=== PATIENT | female | born 1970 | race Caucasian/White ===

== ENCOUNTER 2016-06-24 09:45 | Emergency (ER) | payer BC ==
[2016-06-24 10:31] VITALS: BP 125/89
--- NOTE | 2016-06-24 13:13 | UC ---
Respiratory Complaint HPI - HPI Summary HPI Summary: 1 WEEK OF CONGESTION, COUGH AND FATIGUE. HAD ST INITIALLY BUT THAT HAS IMPROVED. YESTERDAY HAD ONSET OF RIGHT LOWER ABDOMINAL PAIN. NO NAUSEA OR FEVER. NOT WORSE WITH FOOD. NO URINARY SYMPTOMS. - History of Current Complaint Chief Complaint: UCGeneralIllness Stated Complaint: URI Time Seen by Provider: 06/24/16 12:59 Hx Obtained From: Patient Hx Last Menstrual Period: 06/17/16 Onset/Duration: Gradual Onset, Lasting Days, Still Present Timing: Constant Severity Initially: Moderate Severity Currently: Moderate Pain Intensity: 3 Pain Scale Used: 0-10 Numeric Character: Cough: Nonproductive Aggravating Factors: Nothing Alleviating Factors: Nothing Associated Signs And Symptoms: Positive: URI, Nasal Congestion. Negative: Dyspnea, Fever, Chills, Wheezing - Allergies/Home Medications Allergies/Adverse Reactions: Allergies Allergy/AdvReac Type Severity Reaction Status Date / Time No Known Allergies Allergy Verified 11/16/15 19:47 Home Medications: Home Medications Magnesium 400 mg PO BID 06/24/16 [History Confirmed 06/24/16] Mycophenolate (NF) [Myfortic (NF)] 360 mg PO DAILY 06/24/16 [History Confirmed 06/24/16] Virt Phos 500 mg 06/24/16 [History] PMH/Surg Hx/FS Hx/Imm Hx Endocrine History Of: Denies: Diabetes, Thyroid Disease Cardiovascular History Of: Reports: Hypertension Denies: Cardiac Disorders, Pacemaker/ICD Respiratory History Of: Denies: COPD, Asthma GI/ History Of: Reports: Renal Disease - polycystic kidney disease S/P RENAL TRANSPLANT 08/2015 Denies: Gastroesophageal Reflux Neurological History Of: Denies: CVA, Dementia, Seizures Cancer History Of: Denies: Breast Cancer Other History Of: Negative For: Anticoagulant Therapy - Surgical History Surgical History: Yes Surgery Procedure, Year, and Place: TUBAL LIGATION, RIGHT KIDNEY TRANSPLANT 2015, REMOVAL OF BILAT OLD KIDNEYS 08/2015 - Family History Known Family History: Positive: Other - POLYCYSTIC KIDNEY DISEASE (DAD), CKD, GALLBLADDER PROBLEMS - Social History Alcohol Use: None Substance Use Type: None Smoking Status (MU): Never Smoked Tobacco - Immunization History Most Recent Influenza Vaccination: long time ago Most Recent Tetanus Shot: a while ago Most Recent Pneumonia Vaccination: no Review of Systems Constitutional: Negative ENT: Sore Throat, Nasal Discharge Respiratory: Cough Cardiovascular: Negative Gastrointestinal: Abdominal Pain Genitourinary: Negative All Other Systems Reviewed And Are Negative: Yes Physical Exam Triage Information Reviewed: Yes Appearance: Well-Appearing, No Pain Distress, Well-Nourished Vital Signs: Initial Vital Signs Temp 99.3 F 06/24/16 10:23 Pulse 74 06/24/16 10:23 Resp 18 06/24/16 10:23 BP 125/89 06/24/16 10:23 Pulse Ox 100 06/24/16 10:23 Vital Signs Reviewed: Yes Eyes: Positive: Conjunctiva Clear ENT: Positive: Hearing grossly normal, Pharynx normal, TMs normal Neck: Positive: Supple, Nontender, No Lymphadenopathy Respiratory Exam: Normal Cardiovascular Exam: Normal Abdomen Description: Positive: Soft, Other: - RLQ TTP. NO REBOUND, RIGIDITY OR GUARDING. Negative: CVA Tenderness (R), CVA Tenderness (L), Distended, Guarding Bowel Sounds: Positive: Present Musculoskeletal: Positive: No Edema Neurological: Positive: Alert Psychological: Positive: Age Appropriate Behavior Skin: Negative: rashes UC Diagnostic Evaluation - Laboratory O2 Sat by Pulse Oximetry: 100 Respiratory Course/Dx - Differential Dx/Diagnosis Provider Diagnoses: 1. ACUTE BRONCHITIS. 2. RLQ ABDOMINAL PAIN, NOS Discharge - Discharge Plan Condition: Stable Disposition: HOME Prescriptions: Azithromycin [Azithromycin 500 MG TAB] 500 mg PO DAILY #5 tab Patient Education Materials: Acute Bronchitis (ED), Abdominal Pain (ED) Referrals: Tori Elder MD [Primary Care Provider] - If Needed Additional Instructions: ABDOMINAL PAIN: There are many causes of abdominal pain. Pain can mean a serious problem requiring surgery (such as appendicitis), or an innocent problem which goes away on its own (such as a viral infection). Often, time must pass to determine the cause of pain. The physician does not feel that hospitalization is necessary, at present. Conditions may change, however, within the next 24 hours. Therefore, call the doctor or come back for re-examination if any problems occur, such as: 1) Pain which becomes more severe, steady, or becomes concentrated in one specific area. Also, pain which is more severe with movement or coughing. 2) Vomiting which persists or becomes more frequent. 3) Blood in the vomitus, urine, or bowel movements. Blood in the stool may have a tarry or black appearance. 4) Shaking chills or fever greater than 100 degrees F. 5) The abdomen becomes more distended or swollen. 6) Bowel movements cease. 7) Failure to improve as expected. OBSERVATION FOR APPENDICITIS: At this time, the abdominal pain does not seem to be appendicitis. Our next "test" will be passage of time. If you have early appendicitis, signs will appear to help us make the diagnosis. Most of the time, the pain goes away. In these cases, the pain is usually due to a virus in the lymph glands near the appendix, or due to an ovarian cyst or ovulation. Unless the pain is gone, you should come back for a recheck. This is usually done in 8 to 12 hours. Be sure you understand your follow-up instructions. Come back immediately if: (1) the pain becomes much more severe and sharply increases with movement or coughing, (2) vomiting becomes frequent, (3) there is blood in the vomit, urine, or bowel movements, (4) there are shaking chills or fever, or (5) the abdomen becomes more distended or swollen. GO TO THE ER WITHOUT FAIL IF YOU DEVELOP WORSENING ABDOMINAL PAIN, FEVER, NAUSEA OR ANY OTHER CONCERNING SYMPTOMS.
== END 2016-06-24 13:28 | disposition home or self-care (01) ==
LOC: UCEAST 09:45
DX: J40 Bronchitis, not specified as acute or chronic (principal); R10.31 Right lower quadrant pain; I10 Essential (primary) hypertension; N28.9 Disorder of kidney and ureter, unspecified
CPT/HCPCS: 99212; G0463

== ENCOUNTER 2016-08-15 16:36 | Emergency (ER) | payer BC ==
[2016-08-15 17:14] VITALS: BP 134/84
--- NOTE | 2016-08-15 17:38 | UC ---
Throat Pain/Nasal Jonatan HPI - HPI Summary HPI Summary: 46 female presents with complaints of upper respiratory complaints of nasal congestion, sinus pressure, sore throat and non-productive cough that began ~3 weeks ago and has worsened over the past week. Patient was treated 3 weeks ago with cipro for 7 days without much relief. She has since been taking sinus medication OTC and tylenol as needed without relief. She is a kidney transplant patient and is cautious of infection due to being immunocompromised. State the nasal discharge is green in color. Also experiencing post nasal drip and noticed white patches that she picks out of her tonsils. Describes her sore throat as scratchy and bumpy. 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 Did have the flu shot this year. Denies nausea, vomiting, fever/ chills, headache and abdominal pain. - History of Current Complaint Chief Complaint: UCRespiratory Stated Complaint: SORE THROAT,SINUS CONGESTION Time Seen by Provider: 08/15/16 17:22 Hx Obtained From: Patient Hx Last Menstrual Period: unknown ?: No Onset/Duration: Sudden Onset, Lasting Weeks, Still Present, Worse Since Severity: Moderate Pain Intensity: 6 Pain Scale Used: 0-10 Numeric Cough: Nonproductive Associated Signs & Symptoms: Positive: Dysphagia, Sinus Discomfort, Nasal Discharge - Allergies/Home Medications Allergies/Adverse Reactions: Allergies Allergy/AdvReac Type Severity Reaction Status Date / Time No Known Allergies Allergy Verified 08/15/16 17:02 PMH/Surg Hx/FS Hx/Imm Hx Endocrine History Of: Denies: Diabetes, Thyroid Disease Cardiovascular History Of: Reports: Hypertension Denies: Cardiac Disorders, Pacemaker/ICD Respiratory History Of: Denies: COPD, Asthma GI/ History Of: Reports: Renal Disease - polycystic kidney disease S/P RENAL TRANSPLANT 08/2015 Denies: Gastroesophageal Reflux Neurological History Of: Denies: CVA, Dementia, Seizures Cancer History Of: Denies: Breast Cancer Other History Of: Negative For: Anticoagulant Therapy - Surgical History Surgical History: Yes Surgery Procedure, Year, and Place: TUBAL LIGATION, RIGHT KIDNEY TRANSPLANT 2015, REMOVAL OF BILAT OLD KIDNEYS 08/2015 - Family History Known Family History: Positive: None - REVIEWED & NONCONTRIBUTORY, Other - POLYCYSTIC KIDNEY DISEASE (DAD), CKD, GALLBLADDER PROBLEMS - Social History Alcohol Use: None Substance Use Type: None Smoking Status (MU): Never Smoked Tobacco - Immunization History Most Recent Influenza Vaccination: long time ago Most Recent Tetanus Shot: a while ago Most Recent Pneumonia Vaccination: no Vaccination Up to Date: Yes Review of Systems Constitutional: Fatigue Skin: Negative Eyes: Negative ENT: Sore Throat, Nasal Discharge Respiratory: Cough Cardiovascular: Negative Gastrointestinal: Negative Genitourinary: Negative Motor: Negative Neurovascular: Negative Musculoskeletal: Negative Neurological: Headache Psychological: Negative All Other Systems Reviewed And Are Negative: Yes Physical Exam Triage Information Reviewed: Yes Appearance: No Pain Distress, Well-Nourished, Ill-Appearing - appears fatigued, sounds congested and has erythema below nasal passages. Vital Signs: Initial Vital Signs Temp 98.6 F 08/15/16 16:56 Pulse 76 08/15/16 16:56 Resp 18 08/15/16 16:56 BP 134/84 08/15/16 16:56 Pulse Ox 97 08/15/16 16:56 recommend follow up with PCP for BP Vital Signs Reviewed: Yes Eyes: Positive: Conjunctiva Clear ENT: Positive: Hearing grossly normal, Pharyngeal erythema, Nasal congestion, Nasal drainage, TMs normal, Tonsillar exudate, Other: - uvula midline, airway patent. Negative: Tonsillar swelling, Trismus, Muffled/hoarse voice Dental: Positive: Percussion Tenderness @ - maxillary bilateral, mild. Negative : Cervical Lymphadenopathy Neck exam: Normal Neck: Positive: Supple, Nontender, No Lymphadenopathy Respiratory: Positive: Chest non-tender, Lungs clear, Normal breath sounds, No respiratory distress, No accessory muscle use. Negative: Respiratory distress, Decreased breath sounds, Accessory muscle use, Crackles, Rhonchi, Stridor, Wheezing Cardiovascular: Positive: RRR, No Murmur, Pulses Normal, Brisk Capillary Refill Abdominal Exam: Normal Abdomen Description: Positive: Nontender Bowel Sounds: Positive: Present Musculoskeletal Exam: Normal Musculoskeletal: Positive: Strength Intact, ROM Intact, No Edema Neurological Exam: Normal Neurological: Positive: Alert Psychological Exam: Normal Skin Exam: Normal Skin: Positive: Other - erythema noted under nasal passages, irritation Throat Pain/Nasal Course/Dx - Course Course Of Treatment: strep culture obtained and negative. patient appears to be suffering from a URI/pharyngitis however due to being immunocompromised and length of symptoms with failed OTC treatment patient will be given antibiotic. prescribed flonase. fluids, rest and follow up. cough medicine as needed. - Differential Dx/Diagnosis Differential Diagnosis/HQI/PQRI: Influenza, Mononucleosis, Otitis Media, Pharyngitis, Sinusitis, Tonsillitis, URI, Other Provider Diagnoses: URI, Sinusitis Discharge - Discharge Plan Condition: Stable Disposition: HOME Prescriptions: Fluticasone NASAL SPRAY 50MCG* [Flonase NASAL SPRAY 50MCG*] 2 spray BOTH NARES DAILY #1 btl Patient Education Materials: Upper Respiratory Infection (ED), Sinusitis (ED) Referrals: Tori Elder MD [Primary Care Provider] - Additional Instructions: Take prescribed antibiotic as directed even if symptoms improve. Recommend taking probiotic in between doses to replenish normal lizzeth. Use prescribed flonase to help with nasal congestion. Tylenol as needed for fever/discomfort. Drink plenty of fluids and get plenty of rest. Recommend swishing with salt water and keeping good oral hygiene. If symptoms do not improve or worsen please return or seek medical attention promptly.
== END 2016-08-15 18:17 | disposition home or self-care (01) ==
LOC: UCEAST 16:36
DX: J01.90 Acute sinusitis, unspecified (principal); I10 Essential (primary) hypertension; Z94.0 Kidney transplant status
CPT/HCPCS: 87651; 99212; G0463

== ENCOUNTER 2017-08-11 05:53 | Emergency (ER) | payer BC ==
[2017-08-11] MEDS ORDERED: Morphine INJ* 4 MG/ML 1 ML SYRINGE (NEW SYRINGE VERSION) IV ONE ×2 (06:19→10:10)
[2017-08-11] MEDS ORDERED: Metoclopramide IV* 5 MG/ML 2 ML VIAL IV SLOW PU ONE (06:20)
[2017-08-11] MEDS ORDERED: NS 0.9% 1000 ML* 1,000 ML IV ONE ×2 (06:20→10:10)
[2017-08-11] MEDS ORDERED: Ondansetron INJ* 2 MG/ML VIAL ONE (06:40)
[2017-08-11] MEDS ORDERED: Morphine VIAL* 4 MG/ML VIAL (1 ml vial) IV ONE ×2 (06:40→11:00)
[2017-08-11 06:48] LABS: ABS Basophils 0 10^3/ul (0-0.2); ABS Eosinophils 0.1 10^3/ul (0-0.6); ABS Lymphocytes 0.6 10^3/ul (1.0-4.8); ABS Monocytes 0.4 10^3/ul (0-0.8); ABS Neutrophils 4.5 10^3/ul (1.5-7.7); ABS Nucleated RBC 0 10^3/ul; Eosinophil % 1.2 % (0-6); Hematocrit 36 % (35-47); Hemoglobin 12.3 g/dl (12.0-16.0); Lymphocyte % 10.7 % (25-47); Mean Corpuscular HGB Conc 34 g/dl (31-36); Mean Corpuscular Hemoglobin 29 pg (27-31); Mean Corpuscular Volume 86 fL (80-97); Mean Platelet Volume 7.4 um3 (7.4-10.4); Nucleated Red Blood Cells % 0; Platelet Count 148 10^3/ul (150-450); Red Cell Distribution Width 14 % (10.5-15); White Blood Count 5.6 10^3/ul (3.5-10.8)
[2017-08-11] MEDS ORDERED: Ondansetron INJ* 2 MG/ML VIAL IV ONE (06:48)
[2017-08-11 06:54] LABS: Urine Appearance Cloudy; Urine Blood Negative (Negative); Urine Color Yellow; Urine Ketones Negative (Negative); Urine Protein Negative (Negative); Urine Specific Gravity 1.017 (1.010-1.030); Urine Urobilinogen Negative (Negative)
--- NOTE | 2017-08-11 06:55 | ED ---
Ewa Montes Rebecca, scribed for Mey Roa MD on 08/11/17 at 0612 . Abdominal Pain/Female - HPI Summary HPI Summary: Pt is a 47 y/o F who presents to ED c/o RLQ pain. Sx began 1 week ago and has been intermittent since onset, worsening last night, keeping her up all night. Pain is currently moderate, ranked 7/10. Sx aggravated by palpation, alleviated by nothing. Denies any other symptoms including N/V/D and urinary symptoms. PSHx kidney transplant 2 weeks ago and [facility] (takes prograf) and tubal ligation. LNMP 3 weeks ago. Last FLATCAR WHACKER exam was 1 year ago. No PMHx ovarian cysts. - History of Current Complaint Chief Complaint: EDAbdPain Stated Complaint: FLANK PAIN Time Seen by Provider: 08/11/17 05:54 Hx Obtained From: Patient Hx Last Menstrual Period: unknown Onset/Duration: Lasting Weeks - 1 week, Still Present Severity Currently: Moderate Pain Intensity: 7 Pain Scale Used: 0-10 Numeric Location: Discrete At: RLQ Radiates: No Aggravating Factor(s): Other: - Palpation Alleviating Factor(s): Nothing Associated Signs and Symptoms: Positive: Negative. Negative: Nausea, Vomiting, Diarrhea Allergies/Adverse Reactions: Allergies Allergy/AdvReac Type Severity Reaction Status Date / Time No Known Allergies Allergy Verified 08/15/16 17:02 PMH/Surg Hx/FS Hx/Imm Hx Endocrine/Hematology History: Denies: Hx Anticoagulant Therapy, Hx Diabetes, Hx Thyroid Disease Cardiovascular History: Reports: Hx Hypertension, Other Cardiovascular Problems/ Disorders Denies: Hx Pacemaker/ICD Respiratory History: Denies: Hx Asthma, Hx Chronic Obstructive Pulmonary Disease (COPD) History: Reports: Hx Dialysis - polistic, Hx Renal Disease - polycystic kidney disease S/P RENAL TRANSPLANT 08/2015 Musculoskeletal History: Denies: Hx Arthritis Sensory History: Reports: Hx Contacts or Glasses Denies: Hx Cataracts, Hx Hearing Aid Opthamlomology History: Reports: Hx Contacts or Glasses Denies: Hx Cataracts Neurological History: Denies: Hx Dementia, Hx Seizures Psychiatric History: Denies: Hx Panic Disorder, Hx Substance Abuse - Cancer History Hx Chemotherapy: No Hx Radiation Therapy: No - Surgical History Surgery Procedure, Year, and Place: TUBAL LIGATION, RIGHT KIDNEY TRANSPLANT 2015, REMOVAL OF BILAT OLD KIDNEYS 08/2015 Infectious Disease History: No Infectious Disease History: Denies: Hx Hepatitis, Hx Human Immunodeficiency Virus (HIV), Traveled Outside the [place] in Last 30 Days - Family History Known Family History: Positive: Other - POLYCYSTIC KIDNEY DISEASE (DAD), CKD, GALLBLADDER PROBLEMS - Social History Alcohol Use: None Hx Substance Use: No Substance Use Type: Reports: None Hx Tobacco Use: No Smoking Status (MU): Never Smoked Tobacco Review of Systems Negative: Fever Positive: Abdominal Pain - RLQ. Negative: Vomiting, Diarrhea, Nausea Positive: no symptoms reported All Other Systems Reviewed And Are Negative: Yes Physical Exam - Summary Physical Exam Summary: VITAL SIGNS: Reviewed. GENERAL: ~Patient is a well-developed and nourished female who is lying comfortable in the stretcher. Patient is not in any acute respiratory distress. HEAD AND FACE: No signs of trauma. No ecchymosis, hematomas or skull depressions. No sinus tenderness. EYES: PERRLA, EOMI x 2, No injected conjunctiva, no nystagmus. EARS: Hearing grossly intact. Ear canals and tympanic membranes are within normal limits. MOUTH: Oropharynx within normal limits. NECK: Supple, trachea is midline, no adenopathy, no JVD, no carotid bruit, no c- spine tenderness, neck with full ROM. CHEST: Symmetric, no tenderness at palpation LUNGS: Clear to auscultation bilaterally. No wheezing or crackles. CVS: Regular rate and rhythm, S1 and S2 present, no murmurs or gallops appreciated. ABDOMEN: Soft, right pelvic/RLQ tenderness. No signs of distention. No rebound no guarding, and no masses palpated. Bowel sounds are normal. EXTREMITIES: FROM in all major joints, no edema, no cyanosis or clubbing. NEURO: Alert and oriented x 3. No acute neurological deficits. Speech is normal and follows commands. SKIN: Dry and warm Triage Information Reviewed: Yes Vital Signs On Initial Exam: Initial Vitals Temp Pulse Resp BP Pulse Ox 96.7 F 82 16 120/77 99 08/11/17 05:58 08/11/17 05:58 08/11/17 05:58 08/11/17 05:58 08/11/17 05:58 Vital Signs Reviewed: Yes Diagnostics - Vital Signs Vital Signs Temp Pulse Resp BP Pulse Ox 08/11/17 05:58 96.7 F 82 16 120/77 99 - Laboratory Lab Statement: Any lab studies that have been ordered have been reviewed, and results considered in the medical decision making process. Abdominal Pain Fem Course/Dx - Course Course Of Treatment: Pt is a 47 y/o F who presents to ED c/o intermittent RLQ pain for 1 week ago worsening last night, keeping her up all night. Pain is currently moderate, ranked 7/10. Sx aggravated by palpation. Denies any other symptoms including N/V/D and urinary symptoms. PSHx kidney transplant 2 weeks ago and [facility] (takes prograf) and tubal ligation. LNMP 3 weeks ago. Last FLATCAR WHACKER exam was 1 year ago. No PMHx ovarian cysts. In the ED course, pt received Reglan, morphine and fluids. Pt will be signed out to Dr. Cervantes, pending disposition, awaiting US. - Diagnoses Provider Diagnoses: Right lower quadrant pain Discharge - Sign-Out/Discharge Documenting (check all that apply): Sign-Out Patient Signing out patient TO: Ki Cervantes - Discharge Plan Condition: Stable Referrals: Tori Elder MD [Primary Care Provider] - The documentation as recorded by the Ewa li Rebecca accurately reflects the service I personally performed and the decisions made by Janina vance Abdul, MD.
[2017-08-11 06:58] LABS: INR 0.9 (0.77-1.02)
[2017-08-11 07:03] LABS: EGFR Non-African American 42.8 (>60)
--- NOTE | 2017-08-11 09:22 | RAD ---
Indication: Evaluate ovarian cyst. Real-time sonography of the pelvis was performed utilizing endovaginal technique. The uterus measures 9.1 x 5.2 x 7.4 cm. Endometrial echo is not visualized. A large fibroid is noted in the posterior left lateral fundus measuring 4.7 x 4.3 x 4.4 cm. Right ovary is not visualized. The left ovary measures 5.3 x 4.7 x 4.1 cm. There are several cysts in the left ovary measuring 17 x 20 x 19 mm. Additionally hypoechoic lesions with internal echoes are noted measuring 3.7 x 2.6 x 3.7 cm and 2.1 x 2.6 x 2.1 cm. I cannot totally exclude hemorrhagic cysts. Transplant kidney is noted in the right lower quadrant. IMPRESSION: Hypoechoic lesion in the left ovary measuring up to 3.7 cm likely represent hemorrhagic cyst. Right ovary is not visualized. Endometrial echoes are not visualized.
[2017-08-11] MEDS ORDERED: Iodixanol* (CONTRAST) 320 MG/ML 100 ML SDV IV ONE (10:36)
[2017-08-11] MEDS ORDERED: Iodixanol 320 (CONTRAST) 100 ML SDV IV ONE (11:13)
--- NOTE | 2017-08-11 11:59 | RAD ---
Indication: Right lower quadrant pain. Contrast: Administered 80.2 ml of VISAPAQUE 320 mg/ml CT of the abdomen and pelvis was performed after oral and IV contrast administration. Coronal and sagittal reconstructed images were obtained. Lung bases demonstrate no pleural fluid, nodules or masses. Heart is of normal size without evidence of pericardial effusion. The liver is normal in size. Low density lesion in the dome of the liver is unchanged and likely represents a small cyst. In the periphery of the right lobe of liver is a low density lesion measuring 13 mm with fluid density consistent with a small cyst. The spleen is normal in size. The gallbladder demonstrates multiple calcified gallstones. No pericholecystic fluid or wall thickening is noted. The common duct and intrahepatic ducts are mildly dilated although no abrupt termination is noted. Pancreas demonstrates no mass or pancreatic duct dilatation. No adrenal masses are noted. Patient status post bilateral nephrectomy. Small 3 to 5 mm left para-aortic and interaortocaval lymph nodes are noted. The aorta and inferior vena cava are otherwise unremarkable without evidence of obstruction or aneurysmal dilatation. There is a right lower quadrant transplanted kidney noted. The uterus demonstrates myomatous changes. Urinary bladder is unremarkable. No hernias are noted. Appendix is visualized and is normal. No free fluid is noted in the pelvis. No hernias are noted. No pelvic adenopathy is noted. The colon is demonstrates diverticulosis without definite evidence of diverticulitis. The bony structures are otherwise unremarkable. IMPRESSION: Normal appendix. Cholelithiasis. Low density lesions in the liver consistent with hepatic cysts. There is intrahepatic and extrahepatic ductal dilatation without abrupt termination of the ducts is noted.
[2017-08-11 13:49] VITALS: BP 108/68
--- NOTE | 2017-08-12 08:10 | ED ---
Liu Montes Angela, scribed for Ki Cervantes MD on 08/11/17 at 0712 . Progress - Progress Note Progress Note: This pt was signed out by Dr. Roa, pending disposition, awaiting US Transvaginal. Pt is a 47 y/o female presenting to [facility] c/o intermittent RLQ pain for 1 week ago worsening last night, keeping her up all night. LMP: 2.5 weeks ago. Physical Exam: VITAL SIGNS: Reviewed. GENERAL: Patient is a well-developed and nourished female who is lying comfortable in the stretcher. Patient is not in any acute respiratory distress. HEAD AND FACE: Normocephalic and atraumatic. EYES: PERRLA, EOMI x 2, No injected conjunctiva. EARS: Hearing grossly intact. Ear canals and tympanic membranes are WNL. MOUTH: Oropharynx within normal limits. NECK: Supple, trachea is midline, no adenopathy, no JVD. CHEST: Symmetric, no tenderness at palpation LUNGS: Clear to auscultation bilaterally. No wheezing or crackles. CVS: RRR, S1 and S2 present, no murmurs or gallops appreciated. ABDOMEN: Soft. Right pelvic tenderness. No signs of distention. Positive bowel sounds. No rebound no guarding, and no masses palpated. No abdominal bruit or pulsations. EXTREMITIES: FROM in all major joints, no edema, no cyanosis or clubbing. NEURO: Alert and oriented x 3. No acute neurological deficits. Speech is normal. SKIN: Dry and warm Transvaginal US, as read by radiologist IMPRESSION: Hypoechoic lesion in the left ovary measuring up to 3.7 cm likely represent hemorrhagic cyst. Right ovary is not visualized. Endometrial echoes are not visualized. Abdomen/Pelvis CT, as read by radiologist IMPRESSION: Normal appendix. Cholelithiasis. Low density lesions in the liver consistent with hepatic cysts. There is intrahepatic and extrahepatic ductal dilatation without abrupt termination of the ducts is noted. Dr. Cervantes has reviewed these radiology reports. Re-Evaluation - Re-Evaluation First Eval Re-Evaluation Time: 07:14 Comment: Pt is awaiting US. She states she has right sided abdominal pain. Second Eval Re-Evaluation Time: 12:23 Comment: I reviewed the US and CT results with the pt. Pt will be discharged home. Course/Dx - Course Course Of Treatment: This pt was signed out by Dr. Roa to follow up on the results of the transvaginal US. Test results without any significant abnormalities except for creatinine of 1.34, magnesium of 1.6, AST of 11. Transvaginal US: Hypoechoic lesion in the left ovary measuring up to 3.7 cm likely represent hemorrhagic cyst. Right ovary is not visualized. Endometrial echoes are not visualized. Abdomen/Pelvis CT: Normal appendix. Cholelithiasis. Low density lesions in the liver consistent with hepatic cysts. There is intrahepatic and extrahepatic ductal dilatation without abrupt termination of the ducts is noted. In the ED course the pt was given IV fluids, morphine, and Zofran. After these medications, the pts pain improved. Therefore she will be discharged to home with follow up from her PCP. I discussed all the findings and test results with the patient. All questions were answered to patient satisfaction. There were no further complaints or concerns. She is instructed to return to the ED for any worsening or new symptoms. Pt is hemodynamically stable, alert and oriented x3. - Diagnoses Provider Diagnoses: Diffuse abdominal pain Discharge - Sign-Out/Discharge Documenting (check all that apply): Discharge - discharge to home, Receiving Sign-Out Receiving patient FROM: Mey Roa - Discharge Plan Condition: Stable Disposition: HOME Patient Education Materials: Abdominal Pain (ED) Referrals: Tori Elder MD [Primary Care Provider] - 3 Days Additional Instructions: Please follow up with your primary care provider. RETURN TO THE ED FOR ANY NEW OR WORSENING SYMPTOMS. - Billing Disposition and Condition Condition: STABLE Disposition: HOME The documentation as recorded by the Liu li Angela accurately reflects the service I personally performed and the decisions made by Billy vance Walter, MD.
== END 2017-08-11 12:25 | disposition home or self-care (01) ==
LOC: ED 05:53
DX: R10.31 Right lower quadrant pain (principal); Z94.0 Kidney transplant status; I10 Essential (primary) hypertension; Z99.2 Dependence on renal dialysis
CPT/HCPCS: 36415; 74177; 76830; 80053; 81003; 81015; 83735; 84702; 85025; 85610; 85730; 86140; 87086; 96360; 96374; 96375; 96376; 99284; J2270; J2405; Q9967

== ENCOUNTER 2017-12-17 19:36 | Emergency (ER) | payer BC ==
--- NOTE | 2017-12-17 21:14 | ED ---
Abdominal Pain/Female - HPI Summary HPI Summary: This is scribe Kristen Whitman documenting for attending Mey Roa MD. This patient is a 47 year old F presenting to [facility] with a chief complaint of soft diarrhea for the past four weeks worsening today with burning epigastria pain that radiates into the back. Patient reports nausea. Pain is 5/10 in severity. I, Dr. Roa ,personally performed the services described in this documentation as scribed in my presence and it is both accurate and complete - History of Current Complaint Chief Complaint: EDAbdPain Stated Complaint: CHEST PAIN Time Seen by Provider: 12/17/17 21:04 Hx Obtained From: Patient Hx Last Menstrual Period: unknown Onset/Duration: Gradual Onset, Lasting Days Timing: Constant Severity Currently: Moderate Pain Intensity: 5 Pain Scale Used: 0-10 Numeric Location: Epigastric Radiates: Yes Radiates to: Back Associated Signs and Symptoms: Positive: Nausea Allergies/Adverse Reactions: Allergies Allergy/AdvReac Type Severity Reaction Status Date / Time No Known Allergies Allergy Verified 12/17/17 21:27 PMH/Surg Hx/FS Hx/Imm Hx Endocrine/Hematology History: Denies: Hx Anticoagulant Therapy, Hx Diabetes, Hx Thyroid Disease Cardiovascular History: Reports: Hx Hypertension, Other Cardiovascular Problems/ Disorders Denies: Hx Pacemaker/ICD Respiratory History: Denies: Hx Asthma, Hx Chronic Obstructive Pulmonary Disease (COPD) History: Reports: Hx Dialysis - polistic, Hx Renal Disease - polycystic kidney disease S/P RENAL TRANSPLANT 08/2015 Musculoskeletal History: Denies: Hx Arthritis Sensory History: Reports: Hx Contacts or Glasses Denies: Hx Cataracts, Hx Hearing Aid Opthamlomology History: Reports: Hx Contacts or Glasses Denies: Hx Cataracts Neurological History: Denies: Hx Dementia, Hx Seizures Psychiatric History: Denies: Hx Panic Disorder, Hx Substance Abuse - Cancer History Hx Chemotherapy: No Hx Radiation Therapy: No - Surgical History Surgery Procedure, Year, and Place: TUBAL LIGATION, RIGHT KIDNEY TRANSPLANT 2015, REMOVAL OF BILAT OLD KIDNEYS 08/2015 Infectious Disease History: No Infectious Disease History: Denies: Hx Hepatitis, Hx Human Immunodeficiency Virus (HIV), Traveled Outside the [place] in Last 30 Days - Family History Known Family History: Positive: Other - POLYCYSTIC KIDNEY DISEASE (DAD), CKD, GALLBLADDER PROBLEMS - Social History Alcohol Use: None Hx Substance Use: No Substance Use Type: Reports: None Hx Tobacco Use: No Smoking Status (MU): Never Smoked Tobacco Review of Systems Positive: Abdominal Pain, Diarrhea, Nausea Positive: Myalgia - back pain All Other Systems Reviewed And Are Negative: Yes Physical Exam - Summary Physical Exam Summary: VITAL SIGNS: Reviewed. GENERAL: Patient is a well-developed and nourished female who is lying comfortable in the stretcher. Patient is not in any acute respiratory distress. HEAD AND FACE: No signs of trauma. No ecchymosis, hematomas or skull depressions. No sinus tenderness. EYES: PERRLA, EOMI x 2, No injected conjunctiva, no nystagmus. EARS: Hearing grossly intact. Ear canals and tympanic membranes are within normal limits. MOUTH: Oropharynx within normal limits. NECK: Supple, trachea is midline, no adenopathy, no JVD, no carotid bruit, no c- spine tenderness, neck with full ROM. CHEST: Symmetric, no tenderness at palpation LUNGS: Clear to auscultation bilaterally. No wheezing or crackles. CVS: Regular rate and rhythm, S1 and S2 present, no murmurs or gallops appreciated. ABDOMEN: Soft, mild epigastric tenderness. No signs of distention. No rebound no guarding, and no masses palpated. Bowel sounds are hyperactive. EXTREMITIES: FROM in all major joints, no edema, no cyanosis or clubbing. NEURO: Alert and oriented x 3. No acute neurological deficits. Speech is normal and follows commands. SKIN: Dry and warm Triage Information Reviewed: Yes Vital Signs On Initial Exam: Initial Vitals Temp Pulse Resp BP Pulse Ox 98.8 F 70 16 124/78 98 12/17/17 19:40 12/17/17 19:40 12/17/17 19:40 12/17/17 19:40 12/17/17 19:40 Vital Signs Reviewed: Yes Diagnostics - Vital Signs Vital Signs Temp Pulse Resp BP Pulse Ox 12/17/17 19:40 98.8 F 70 16 124/78 98 - Laboratory Result Diagrams: 12/17/17 21:54 12/17/17 21:54 Lab Statement: Any lab studies that have been ordered have been reviewed, and results considered in the medical decision making process. - EKG 1945 Cardiac Rate: NL - 68 BPM EKG Rhythm: Sinus Rhythm EKG Interpretation: Normal axis, normal interval, no ischemic changes. Re-Evaluation - Re-Evaluation First Eval Re-Evaluation Time: 20:49 Comment: Lab results were normal including white count and CPR. Patient will be discharged. Abdominal Pain Fem Course/Dx - Course Course Of Treatment: "This patient is a 47 year old F presenting to [facility] with a chief complaint of soft diarrhea for the past four weeks worsening today with burning epigastria pain that radiates into the back. Patient reports nausea. Pain is 5/10 in severity". An EKG revealed a rate of 68 BPM, normal axis , normal interval, no ischemic changes. In the ED course, the patient recieved Maalox, Lomotil, Xylocaine, Reglan, Morphine, Protonix and IV fluids. Patient lab results were normal including white count and CPR. Patient will be discharged with a diagnosis of abdominal pain. Patient is to follow up with PCP and GI doctor in 1-2 days. Patient is agreeable with this plan. - Diagnoses Provider Diagnoses: Abdominal pain Discharge - Sign-Out/Discharge Documenting (check all that apply): Patient Departure - DISCHARR - Discharge Plan Condition: Stable Disposition: HOME Patient Education Materials: Acute Abdominal Pain (ED), Abdominal Pain (ED) Referrals: Tori Elder MD [Primary Care Provider] - 2 Days Basil Guzmán MD [Medical Doctor] - 2 Days Additional Instructions: FOLLOW UP WITH GI DOCTOR AND PRIMARY CARE IN 1-2 DAYS. RETURN TO ED FOR ANY NEW OR WORSENING SYMPTOMS.
[2017-12-17] MEDS ORDERED: NS 0.9% 1000 ML* 1,000 ML IV ONE (21:38)
[2017-12-17] MEDS ORDERED: Al Hydrox/Mg Hydrox/Simet LIQ* 30 ML UDC PO ONE (21:39)
[2017-12-17] MEDS ORDERED: Lidocaine 2% VISCOUS* 15 ML UDC PO ONE (21:39)
[2017-12-17] MEDS ORDERED: Diphenoxylat/Atrop 2.5-0.025M* 1 TAB PO ONE (21:39)
[2017-12-17] MEDS ORDERED: Metoclopramide IV* 5 MG/ML 2 ML VIAL IV SLOW PU ONE (21:40)
[2017-12-17] MEDS ORDERED: Pantoprazole IV* 40 MG IV ONE (21:40)
[2017-12-17] MEDS ORDERED: Morphine INJ* 2 MG/ML 1 ML SYRINGE (TWO MG - NEW SYRINGE VERSION) IV ONE (21:40)
[2017-12-17 22:02] LABS: ABS Basophils 0 10^3/ul (0-0.2); ABS Eosinophils 0.1 10^3/ul (0-0.6); ABS Lymphocytes 0.8 10^3/ul (1.0-4.8); ABS Monocytes 0.3 10^3/ul (0-0.8); ABS Neutrophils 3.2 10^3/ul (1.5-7.7); ABS Nucleated RBC 0 10^3/ul; Eosinophil % 2.5 % (0-6); Hematocrit 37 % (35-47); Hemoglobin 12.2 g/dl (12.0-16.0); Lymphocyte % 18.3 % (25-47); Mean Corpuscular HGB Conc 33 g/dl (31-36); Mean Corpuscular Hemoglobin 29 pg (27-31); Mean Corpuscular Volume 87 fL (80-97); Mean Platelet Volume 7.4 um3 (7.4-10.4); Nucleated Red Blood Cells % 0.1; Platelet Count 137 10^3/ul (150-450); Red Blood Count 4.26 10^6/ul (4.00-5.40); Red Cell Distribution Width 15 % (10.5-15); White Blood Count 4.4 10^3/ul (3.5-10.8)
[2017-12-17 22:07] LABS: INR 0.9 (0.77-1.02)
[2017-12-17 22:22] LABS: EGFR Non-African American 40.7 (>60)
[2017-12-17 23:26] LABS: Urine Appearance Clear; Urine Blood Negative (Negative); Urine Color Yellow; Urine Ketones Negative (Negative); Urine Protein Negative (Negative); Urine Specific Gravity 1.024 (1.010-1.030); Urine Urobilinogen Negative (Negative)
[2017-12-17 23:38] VITALS: BP 111/81
== END 2017-12-17 23:36 | disposition home or self-care (01) ==
LOC: ED 19:36
DX: R10.9 Unspecified abdominal pain (principal); R19.7 Diarrhea, unspecified; R11.0 Nausea; I10 Essential (primary) hypertension
CPT/HCPCS: 36415; 80053; 81003; 82150; 83690; 83735; 85025; 85610; 86140; 93005; 96374; 96375; 99282; A9270-GY; J2765

== ENCOUNTER 2018-10-11 08:49 | Emergency (ER) | payer BC ==
[2018-10-11 09:05] VITALS: BP 123/77
--- NOTE | 2018-10-11 09:40 | UC ---
UC General HPI - HPI Summary HPI Summary: 48-year-old female with history of renal transplant on immunosuppressive medications presents with 3 days of cough, congestion and "head cold". He denies any fevers, shakes or chills or sinus pain. No UTI sx. - History of Current Complaint Chief Complaint: UCRespiratory Stated Complaint: CONGESTION SORE THROAT Time Seen by Provider: 10/11/18 09:27 Hx Obtained From: Patient Hx Last Menstrual Period: 09/06/18 Pain Intensity: 4 - Allergy/Home Medications Allergies/Adverse Reactions: Allergies Allergy/AdvReac Type Severity Reaction Status Date / Time No Known Allergies Allergy Verified 10/11/18 09:06 PMH/Surg Hx/FS Hx/Imm Hx Previously Healthy: No - polycystic kidney disease status post renal transplant Other History Of: Negative For: Anticoagulant Therapy - Surgical History Surgical History: Yes Surgery Procedure, Year, and Place: TUBAL LIGATION, RIGHT KIDNEY TRANSPLANT 2015, REMOVAL OF BILAT OLD KIDNEYS 08/2015 - Family History Known Family History: Positive: Other - POLYCYSTIC KIDNEY DISEASE (DAD), CKD, GALLBLADDER PROBLEMS - Social History Occupation: Employed Full-time Alcohol Use: None Substance Use Type: None Smoking Status (MU): Never Smoked Tobacco - Immunization History Most Recent Influenza Vaccination: long time ago Most Recent Tetanus Shot: a while ago Most Recent Pneumonia Vaccination: no Vaccination Up to Date: Yes Review of Systems All Other Systems Reviewed And Are Negative: Yes Constitutional: Negative: Fever, Chills Skin: Positive: Negative Eyes: Positive: Negative ENT: Positive: Nasal Discharge, Sinus Congestion. Negative: Sore Throat, Ear Ache, Sinus Pain/Tenderness Respiratory: Positive: Cough. Negative: Shortness Of Breath Cardiovascular: Positive: Negative Gastrointestinal: Positive: Negative Physical Exam Triage Information Reviewed: Yes Appearance: Well-Appearing, No Pain Distress, Well-Nourished Vital Signs: Initial Vital Signs Temp 98 F 10/11/18 09:03 Pulse 64 10/11/18 09:03 Resp 17 10/11/18 09:03 BP 123/77 10/11/18 09:03 Pulse Ox 100 10/11/18 09:03 Vital Signs Reviewed: Yes Eyes: Positive: Conjunctiva Clear ENT: Positive: Hearing grossly normal, Pharynx normal, Pharyngeal erythema, Nasal congestion, Nasal drainage, TMs normal. Negative: Tonsillar swelling, Tonsillar exudate, Hoarse voice, Sinus tenderness Neck: Positive: No Lymphadenopathy Respiratory: Positive: Lungs clear, No respiratory distress Cardiovascular: Positive: RRR Abdomen Description: Positive: Nontender. Negative: CVA Tenderness (R), CVA Tenderness (L) Musculoskeletal: Positive: ROM Intact Neurological: Positive: Alert Psychological Exam: Normal Skin Exam: Normal Course/Dx - Course Course Of Treatment: Minor URI symptoms. Blood pressure normal. Treat with antibiotics given her immunosuppression. Allergies versus viral is most likely. - Differential Dx - Multi-Symptom Differential Diagnoses: Other - URI, bronchitis, pharyngitis - Diagnoses Provider Diagnosis: Cough in adult patient, History of renal transplantation Discharge - Sign-Out/Discharge Documenting (check all that apply): Patient Departure All imaging exams completed and their final reports reviewed: No Studies - Discharge Plan Condition: Improved Disposition: HOME Prescriptions: Azithromycin TAB* [Zithromax TAB (Z-TORRIE) 250 mg #6 tabs] 2 tab PO .TODAY, THEN 1 DAILY #1 torrie Patient Education Materials: Upper Respiratory Infection (ED) Referrals: Tori Elder MD [Primary Care Provider] - Additional Instructions: Use guaifenesin/Mucinex for congestion. Afrin 3 times a day for maximum of 3 days. Humidifier while sleeping. Continue Coricidin. Return with fever, worse , new symptoms or other concerns. Call today to schedule follow-up with your doctor. - Billing Disposition and Condition Condition: IMPROVED Disposition: Home
== END 2018-10-11 09:40 | disposition home or self-care (01) ==
LOC: UCEAST 08:49
DX: R05 Cough (principal); Z94.0 Kidney transplant status
CPT/HCPCS: 99212; G0463

== ENCOUNTER 2019-04-04 19:06 | Emergency (ER) | payer BC ==
[2019-04-04 19:24] LABS: Urine Appearance Clear; Urine Bilirubin Negative (Negative); Urine Blood Negative (Negative); Urine Color Yellow; Urine Glucose Negative (Negative); Urine Ketones Negative (Negative); Urine Nitrite Negative (Negative); Urine Protein Negative (Negative); Urine Specific Gravity 1.014 (1.010-1.030); Urine Urobilinogen Negative (Negative)
[2019-04-04 19:26] LABS: Urine Bacteria 2+ (Absent); Urine Red Blood Cell 1+(3-5/hpf) (Absent); Urine Squamous Epithelial Cell Present (Absent); Urine White Blood Cell 1+(6-10/hpf) (Absent)
--- NOTE | 2019-04-04 19:50 | ED ---
Abdominal Pain/Female - HPI Summary HPI Summary: Patient is a 48 y/o F w/ Hx of right kidney transplant August 2015 due to polycystic kidney disease who presents to [facility] with complaints of RLQ pain that onset 04/04/19 around 1600. Pain progressively worsened since onset. Patient notes that the pain is constant and intermittently sharp. No radiation of pain is noted. She endorses some nausea and diarrhea but denies vomiting, fever, back pain and dysuria. No similar previous episodes are noted. Patient states that she has been able to eat. PSHx of cholecystectomy is noted. Patient still has appendix present. She states that she does not get menstrual cycles anymore due to ablation. Patient still has both ovaries. She denies tobacco, alcohol, and substance usage. On triage, pain is rated 6/10. Home medications and allergies are reviewed. - History of Current Complaint Chief Complaint: EDAbdPain Stated Complaint: ABD PAIN PER PT Time Seen by Provider: 04/04/19 19:29 Hx Obtained From: Patient Hx Last Menstrual Period: 09/06/18 Onset/Duration: Lasting Hours, Still Present Severity Currently: Moderate Pain Intensity: 6 Pain Scale Used: 0-10 Numeric Location: Discrete At: RLQ Radiates: No Character: Sharp Associated Signs and Symptoms: Positive: Nausea, Diarrhea. Negative: Fever, Back Pain, Urinary Symptoms - dysuria, Decreased Appetite, Vomiting Allergies/Adverse Reactions: Allergies Allergy/AdvReac Type Severity Reaction Status Date / Time No Known Allergies Allergy Verified 04/04/19 19:08 PMH/Surg Hx/FS Hx/Imm Hx Endocrine/Hematology History: Denies: Hx Anticoagulant Therapy, Hx Diabetes, Hx Thyroid Disease Cardiovascular History: Reports: Hx Hypertension, Other Cardiovascular Problems/ Disorders Denies: Hx Pacemaker/ICD Respiratory History: Denies: Hx Asthma, Hx Chronic Obstructive Pulmonary Disease (COPD) History: Reports: Hx Dialysis - polistic, Hx Renal Disease - polycystic kidney disease S/P RENAL TRANSPLANT 08/2015 Musculoskeletal History: Denies: Hx Arthritis Sensory History: Reports: Hx Contacts or Glasses Denies: Hx Cataracts, Hx Hearing Aid Opthamlomology History: Reports: Hx Contacts or Glasses Denies: Hx Cataracts Neurological History: Denies: Hx Dementia, Hx Seizures Psychiatric History: Denies: Hx Panic Disorder, Hx Substance Abuse - Cancer History Cancer Type, Location and Year: kidney transplant Hx Chemotherapy: No Hx Radiation Therapy: No - Surgical History Surgery Procedure, Year, and Place: TUBAL LIGATION, RIGHT KIDNEY TRANSPLANT 2015, REMOVAL OF BILAT OLD KIDNEYS 08/2015 Infectious Disease History: No Infectious Disease History: Denies: Hx Hepatitis, Hx Human Immunodeficiency Virus (HIV), Traveled Outside the [place] in Last 30 Days - Family History Known Family History: Positive: Other - POLYCYSTIC KIDNEY DISEASE (DAD), CKD, GALLBLADDER PROBLEMS - Social History Alcohol Use: None Hx Substance Use: No Substance Use Type: Reports: None Hx Tobacco Use: No Smoking Status (MU): Never Smoked Tobacco Review of Systems - ROS Summary Review of Systems Summary: Home Medications Medication Instructions Recorded Confirmed Type Cholecalciferol TAB* [Vitamin D 2,000 unit PO DAILY 11/16/15 10/11/18 History TAB*] Ferrous Sulfate TAB* 325 mg PO DAILY 11/16/15 10/11/18 History Tacrolimus CAP(*) [Prograf CAP(*)] 2.5 mg PO BID 11/16/15 10/11/18 History Mycophenolate (NF) [Myfortic (NF)] 720 mg PO BID 06/24/16 10/11/18 History Aspirin EC TAB* [Ecotrin EC Low 81 mg PO DAILY 08/11/17 10/11/18 History Dose 81 MG*] Magnesium Oxide TAB* [MagOx 400 400 mg PO BID 08/11/17 10/11/18 History TAB*] Azithromycin TAB* [Zithromax TAB 2 tab PO .TODAY, THEN 1 DAILY #1 10/11/18 Rx (Z-TORRIE) 250 mg #6 tabs] torrie Negative: Fever Gastrointestinal: Other - negative - decreased appetite Positive: Abdominal Pain - RLQ, Diarrhea, Nausea. Negative: Vomiting Negative: dysuria Musculoskeletal: Other - negative - back pain All Other Systems Reviewed And Are Negative: Yes Physical Exam - Summary Physical Exam Summary: General: Well-developed, Obese female. No acute distress. HEENT: Normocephalic, Atraumatic. Eyes: Conjuctiva normal, PERRL. Ears: TMs within normal limits. Nares: (-) discharge, (-) erythema. Oropharynx: Clear, mucous membranes moist, (-) exudates. Neck: Soft, FROM, (-) lymphadenopathy, (-) thyromegaly, (-) JVD. Cardiovascular: Normal sinus rhythm, (-) murmur. Lungs: Clear to auscultation bilaterally (-) wheezes, (-) rales, (-) rhonchi. Abdomen: Soft; mild RLQ tenderness, moderate suprapubic tenderness; non- distended, (-) organomegaly, normal bowel sounds. Back: (-) CVA tenderness Extremities: No edema. Skin: Warm, dry, (-) rash. Neuro: Alert and oriented x3, no focal deficits. Psychiatric: Flat affect. Triage Information Reviewed: Yes Vital Signs On Initial Exam: Initial Vitals Temp Pulse Resp BP Pulse Ox 98.5 F 82 18 123/104 100 04/04/19 19:08 04/04/19 19:08 04/04/19 19:08 04/04/19 19:08 04/04/19 19:08 Vital Signs Reviewed: Yes Procedures - Sedation Patient Received Moderate/Deep Sedation with Procedure: No Diagnostics - Vital Signs Vital Signs Temp Pulse Resp BP Pulse Ox 04/04/19 19:08 98.5 F 82 18 123/104 100 - Laboratory Lab Results: Lab Results 04/04/19 Range/Units 19:14 Urine Color Yellow Urine Appearance Clear Urine pH 6.0 (5-9) Ur Specific [place] 1.014 (1.010-1.030) Urine Protein Negative (Negative) Urine Ketones Negative (Negative) Urine Blood Negative (Negative) Urine Nitrate Negative (Negative) Urine Bilirubin Negative (Negative) Urine Urobilinogen Negative (Negative) Ur Leukocyte Esterase 2+ A (Negative) Urine WBC (Auto) 1+(6-10/hpf) A (Absent) Urine RBC (Auto) 1+(3-5/hpf) A (Absent) Ur Squamous Epith Cells Present A (Absent) Urine Bacteria 2+ A (Absent) Urine Glucose Negative (Negative) Result Diagrams: 04/04/19 20:12 04/04/19 20:12 Lab Statement: Any lab studies that have been ordered have been reviewed, and results considered in the medical decision making process. Re-Evaluation - Re-Evaluation First Eval Re-Evaluation Time: 21:15 Comment: Results of workup were discussed. Patient was given dose of Bactrim in ED and discharged to home with prescription for this antibiotic. Patient is agreeable with plan. Abdominal Pain Fem Course/Dx - Course Course Of Treatment: 48 year old female with suprapubic and rlq abd pain. history of kidney transplant. dysuria. no f/c, back pain, vomiting. found to have uti. no fever or elev wbc. patient received 1 tab of Bactrim. discharged home on bactrim. drink plenty of water. follow up with pcp, followup sooner for any worsening symptoms. - Diagnoses Provider Diagnoses: UTI (urinary tract infection) Discharge ED - Sign-Out/Discharge Documenting (check all that apply): Patient Departure - discharge - Discharge Plan Condition: Stable Disposition: HOME Prescriptions: Sulfamethox/Trimethoprim DS* [Bactrim DS 800/160 TAB*] 1 tab PO BID #14 tab Patient Education Materials: Urinary Tract Infection in Women (ED) Referrals: Tori Elder MD [Primary Care Provider] - 3 Days Additional Instructions: PLEASE RETURN TO ED FOR ANY NEW OR WORSENING SYMPTOMS. PLEASE FOLLOW UP WITH YOUR PRIMARY CARE PHYSICIAN WITHIN THREE DAYS. - Attestation Statements Document Initiated by Scribe: Yes Documenting Scribe: TEVIN DAI Provider For Whom Scribe is Documenting (Include Credential): ABHIJIT DAVIS MD Scribe Attestation: TEVIN Montes, scribed for ABHIJIT DAVIS MD on 04/04/19 at 2343. Status of Scribe Document: Ready
[2019-04-04 20:20] LABS: ABS Eosinophils 0.1 10^3/ul (0-0.6); ABS Lymphocytes 0.8 10^3/ul (1.0-4.8); ABS Monocytes 0.4 10^3/ul (0-0.8); ABS Neutrophils 4.2 10^3/ul (1.5-7.7); Eosinophil % 1.7 %; Hematocrit 38 % (35-47); Hemoglobin 12.6 g/dL (12.0-16.0); Lymphocyte % 14.9 %; Mean Corpuscular HGB Conc 33 g/dL (31-36); Mean Corpuscular Hemoglobin 29 pg (27-31); Mean Corpuscular Volume 86 fL (80-97); Mean Platelet Volume 7.3 fL (7.4-10.4); Nucleated Red Blood Cells % 0.1; Platelet Count 187 10^3/uL (150-450); Red Cell Distribution Width 14 % (10-15); White Blood Count 5.6 10^3/uL (3.5-10.8)
[2019-04-04 20:26] LABS: INR 0.96 (0.82-1.09)
[2019-04-04 20:39] LABS: Albumin 4.3 g/dL (3.2-5.2); Albumin/Globulin Ratio 1.8 (1-3); BUN/Creatinine Ratio 17.7 (8-20); C Reactive Protein 1.43 mg/L (<8.01); Calcium 9.2 mg/dL (8.6-10.3); EGFR African American 48.6 (>60); EGFR Non-African American 40.2 (>60); Globulin 2.4 g/dL (2-4); Potassium 4.2 mmol/L (3.5-5.0); Total Bilirubin 0.3 mg/dL (0.2-1.0); Total Protein 6.7 g/dL (6.4-8.9)
[2019-04-04 20:45] LABS: HCG Pregnancy 0.9 mIU/mL
[2019-04-04] MEDS ORDERED: Sulfamethox/Trimethoprim DS 800/160* TAB PO ONE (21:11)
[2019-04-04 21:39] VITALS: BP 0/0
== END 2019-04-04 21:38 | disposition home or self-care (01) ==
LOC: ED 19:06
DX: N39.0 Urinary tract infection, site not specified (principal); I10 Essential (primary) hypertension; Q61.3 Polycystic kidney, unspecified; Z99.2 Dependence on renal dialysis; Z94.0 Kidney transplant status; Z98.51 Tubal ligation status; Z79.82 Long term (current) use of aspirin; Z79.899 Other long term (current) drug therapy
CPT/HCPCS: 36415; 80053; 81003; 81015; 83605; 84702; 85025; 85610; 86140; 87040; 87086; 99282; A9270-GY